=== PATIENT | female | born 1975 | race Caucasian/White ===

== ENCOUNTER 2024-06-06 14:39 | Emergency (ER) | payer OTHER, SELFPAY ==
[2024-06-06 15:14] VITALS: BP 128/88; PULSE 80; RESP 16; TEMP 36.3; O2SAT 99; BMI 44.9
--- NOTE | 2024-06-06 15:24 | DI.US.S_ITS ---
PROCEDURE: US PELVIC COMPLETE INDICATIONS: heavy vaginal bleeding, post menopause TECHNIQUE: Real-time scanning was performed of the pelvic organs, with image documentation. Additional endovaginal scanning was necessary due to incomplete visualization of the adnexal and endometrial structures by transabdominal scanning. COMPARISON: None. FINDINGS: Uterus: 7.9 x 4.1 x 5.5 cm. Endometrium measures 7 mm. Ovaries: Right ovary is absent. Nonenlarged left ovary measuring 7 cc. Other: No pathologic free fluid. IMPRESSION: Reported postmenopausal status. Endometrium measures 7 mm, which is mildly thickened, consider sampling. Dictated by: Darinel Arellano M.D. on 06/06/2024 at 17:04 Approved by: Darinel Arellano M.D. on 06/06/2024 at 17:05
[2024-06-06 15:32] LABS: Add Manual Diff / Slide Review NO; Basophils Absolute Auto 0 /uL (0-100); Basophils Percent Auto 1.1 % (0-2); Eosinophils Absolute Auto 100 /uL (0-450); Eosinophils Percent Auto 1.3 % (2-4); Hematocrit 42.9 % (36-46); Hemoglobin 14.7 g/dL (12.0-16.0); Lymphocytes Absolute Auto 1200 /uL (1100-4500); Lymphocytes Percent Auto 28.8 % (25-40); Mean Corpuscular HGB Conc 34.2 % (30-36); Mean Corpuscular Hemoglobin 31.5 PG (26-34); Mean Corpuscular Volume 92.2 fL (80-100); Monocytes Absolute Auto 400 /uL (0-900); Monocytes Percent Auto 10.6 % (3-14); Neutrophils Absolute Auto 2400 /uL (1500-7000); Neutrophils Percent Auto 58.2 % (50-75); Platelet Count 306 X10^3/uL (150-400); Red Blood Cell Count 4.66 X10^6/uL (4.0-5.2); Red Cell Distribution Width 12.9 % (11.6-14.8)
[2024-06-06 15:47] LABS: Carbon Dioxide 28 mmol/L (22-32); Chloride 103 mmol/L (98-107); Glucose 93 mg/dL (70-100); HEMOLYSIS < 15 (0-50); Potassium 4.2 mmol/L (3.4-5.1); Sodium 137 mmol/L (137-145)
[2024-06-06 15:48] LABS: BUN Creatinine Ratio 16.8 (6-22); Blood Urea Nitrogen 16 mg/dL (7-17); Calcium 9.1 mg/dL (8.4-10.2); Estimated Glomerular Filt Rate > 60 mL/min (>60)
[2024-06-06 17:24] LABS: Bacteria Urine Occasional (0-1); RBC Urine 10-30/HPF (0-5/HPF); Squamous Epithelial Cell Urine None Seen (0-5/HPF); Urine Volume 10mL (spun); WBC Urine None Seen (0-5/HPF)
[2024-06-06 17:25] LABS: Culture Indicated Urine Cult Not Indicated
--- NOTE | 2024-06-06 17:25 | PC.NURSE ---
No new dizziness. No fever. No lower back pain. States pain has gotten worse since checking into ER. Denies any hx of prolapsed uterus. States last visit to OBGYN was a little over a year ago.
--- NOTE | 2024-06-06 18:12 | ED.GENADULT ---
HPI - General Adult General Chief complaint: Vaginal Bleeding Stated complaint: post menopausal, bleeding, abd pain Time Seen by Provider: 06/06/24 18:12 Source: patient Mode of arrival: Ambulatory History of Present Illness HPI narrative: 48-year-old female who does not take blood thinner medications, no clotting disorders, had not been having periods for a few years, now with 2 days duration of crampy lower abdominal discomfort and some vaginal bleeding, decreased through the day today. No fevers or chills. She was going to an ophthalmology clinic when she mentioned this and was advised to come here for evaluation. She has a computer programmer analyst Dr. Gamboa in [facility]. She denies dizziness or shortness of breath symptoms. Review of Systems Review of Systems Narrative: see HPI Exam Narrative Exam Narrative: GENERAL: Well-developed patient, in mild distress. HEAD: Atraumatic. Normocephalic. EYES: Pupils equal round and reactive. Extraocular motions intact. No scleral icterus. No injection or drainage. ENT: Nose without bleeding, purulent drainage. Throat without erythema, tonsillar hypertrophy or exudate. Airway patent. NECK: Trachea midline. Non tender CARDIOVASCULAR: Regular rate and rhythm without murmurs, gallops, or rubs. RESPIRATORY: Clear to auscultation. Breath sounds equal bilaterally. No wheezes, rales, or rhonchi. GASTROINTESTINAL: Abdomen soft, non-tender, nondistended. EXTREMITIES: No edema or joint tenderness. BACK: Nontender without deformity or crepitance. No flank tenderness. NEURO: AOx3. Motor functions grossly nonfocal SKIN: No rash or erythema of visible areas Initial Vital Signs Initial Vital Signs: Vital Signs Temperature 97.4 F L 06/06/24 15:14 Pulse Rate 80 06/06/24 15:14 Respiratory Rate 16 06/06/24 15:14 Blood Pressure 128/88 06/06/24 15:14 Pulse Oximetry 99 06/06/24 15:14 Oxygen Delivery Method Room Air 06/06/24 15:14 Course Orders Ordered: Discontinued Medications Acetaminophen (Acetaminophen 325 Mg Tablet) 650 mg PO NOW ONE Stop: 06/06/24 18:21 Last Admin: 06/06/24 18:25 Dose: 650 mg Documented By: KW Vital Signs Vital signs: Vital Signs - 8 hr 06/06/24 18:50 Temperature 98.3 F Pulse Rate 77 Respiratory Rate 16 Blood Pressure 126/82 Pulse Oximetry 100 Oxygen Delivery Method Room Air Medical Decision Making Lab Data Lab results reviewed: Yes I reviewed the patient's lab results. Lab results narrative: White blood cell count 4000, hemoglobin 14.7, platelets normal. BNP unremarkable, liver functions unremarkable. 06/06/24 15:22 06/06/24 15:22 Labs: Lab Results 06/06/24 06/06/24 Range/Units 15:22 15:26 WBC 4.0 L (4.5-11.0) X10^3/uL RBC 4.66 (4.0-5.2) X10^6/uL Hgb 14.7 (12.0-16.0) g/dL Hct 42.9 (36-46) % MCV 92.2 (80-100) fL MCH 31.5 (26-34) PG MCHC 34.2 (30-36) % RDW 12.9 (11.6-14.8) % Plt Count 306 (150-400) X10^3/uL Neut % (Auto) 58.2 (50-75) % Lymph % (Auto) 28.8 (25-40) % [place] % (Auto) 10.6 (3-14) % Eos % (Auto) 1.3 L (2-4) % Baso % (Auto) 1.1 (0-2) % Neut # (Auto) 2400 (8994-4269) /uL Lymph # (Auto) 1200 (3059-1806) /uL [place] # (Auto) 400 (0-900) /uL Eos # (Auto) 100 (0-450) /uL Baso # (Auto) 0 (0-100) /uL Sodium 137 (137-145) mmol/L Potassium 4.2 (3.4-5.1) mmol/L Chloride 103 (98-107) mmol/L Carbon Dioxide 28 (22-32) mmol/L BUN 16 (7-17) mg/dL Creatinine 0.95 (0.52-1.04) mg/dL Estimated GFR > 60 (>60) mL/min BUN/Creatinine Ratio 16.8 (6-22) Glucose 93 (70-100) mg/dL Calcium 9.1 (8.4-10.2) mg/dL HCG, Quant < 2.39 mIU/mL Urine RBC 10-30/hpf H (0-5/HPF) Urine WBC None seen (0-5/HPF) Ur Squamous Epith Cells None seen (0-5/HPF) Urine Bacteria Occasional (0-1) (None) Ur Culture Indicated? Cult not indicated Vol Urine Centrifuged 10ml (spun) Ur Chlamydia DNA (PCR) Not detected N gonorrhoeae DNA (PCR) Not detected Blood Type A Positive Antibody Screen Negative Urine Dip Bedside Urine Glucose Negative Bedside Urine Bilirubin - Negative Bedside Urine Ketone - Negative Urine Specific [place] 1.015 Bedside Urine Occult Blood +++ Bedside Urine pH 5.5 Bedside Urine Protein - Negative Bedside Urine Urobilinogen - Negative Bedside Urine Nitrite - Negative Bedside Urine Leukocytes - Negative Esterase Point of care testing: Urine Dip Bedside Urine Glucose Negative Bedside Urine Bilirubin - Negative Bedside Urine Ketone - Negative Urine Specific [place] 1.015 Bedside Urine Occult Blood +++ Bedside Urine pH 5.5 Bedside Urine Protein - Negative Bedside Urine Urobilinogen - Negative Bedside Urine Nitrite - Negative Bedside Urine Leukocytes - Negative Esterase Imaging Data Pelvic ultrasound: Radiologist's Impression: [address] [address] Ultrasound Report Signed Patient: Rosemarie Flanagan MR#: [id number] : 1975 Acct:[id number] Age/Sex: 48 / F Date of Service: 06/06/24 Loc: ED Accession Number: [id number] Procedure: US pelvic complete Ordering Provider: Anai Dos Santos D.O. PROCEDURE: US PELVIC COMPLETE INDICATIONS: heavy vaginal bleeding, post menopause TECHNIQUE: Real-time scanning was performed of the pelvic organs, with image documentation. Additional endovaginal scanning was necessary due to incomplete visualization of the adnexal and endometrial structures by transabdominal scanning. COMPARISON: None. FINDINGS: Uterus: 7.9 x 4.1 x 5.5 cm. Endometrium measures 7 mm. Ovaries: Right ovary is absent. Nonenlarged left ovary measuring 7 cc. Other: No pathologic free fluid. IMPRESSION: Reported postmenopausal status. Endometrium measures 7 mm, which is mildly thickened, consider sampling. Dictated by: Darinel Arellano M.D. on 06/06/2024 at 17:04 Approved by: Darinel Arellano M.D. on 06/06/2024 at 17:05 [facility] Narrative Medical decision making narrative: 48-year-old female had not been having periods for a number of years, now with 2 days duration of lower abdominal cramping and vaginal bleeding. No fever. Cans abdominal exam unremarkable. Hemoglobin normal. White blood cell count normal. Serum HCG negative. Ultrasound done from triage, endometrial thickening noted, otherwise negative. See report. Case discussed with Dr. Barragan, believes that the endometrium is not thickened by report dimensions with 7 mm, but post menopausal bleeding of concern, stable vitals, normal hemoglobin, can be evaluated as an outpatient, might need endometrial biopsy, can be performed by patient's own computer programmer analyst in [place] as an outpatient. Contact information provided for the patient for Dr. Barragan, if she can not be seen by her own [facility] computer programmer analyst. Patient declined any further workup, requested to go home. Discharged home. Follow up with Gynecology as an outpatient for now. Discharge Plan Departure Patient Disposition: Home Clinical Impression: Post-menopausal bleeding Activity Restrictions/Additional Instructions: Postmenopausal bleeding and cramping. Ultrasound showed empty uterus, 7 mm thickening, no acute changes. Copy of report provided. Case discussed with local computer programmer analyst Dr. Barragan, who could see you in follow up if more expedient then seeing your computer programmer analyst in [place], however advises follow up with Gynecology. You might end up needing endometrial biopsy of the uterine lining. No therapy advised for now. Return earlier to this/nearest emergency department for any change worsening symptoms or any concerns prior Referrals: Tod Barragan MD [Physician] - Stand Alone Forms: Patient Portal/API/Survey
[2024-06-06] MEDS: ACETAMINOPHEN 325 MG TABLET 650 MG PO (18:25)
[2024-06-06 18:50] VITALS: BP 126/82; PULSE 77; RESP 16; TEMP 36.8; O2SAT 100
[2024-06-06 19:07] LABS: HCG Quantitative /Beta subunit < 2.39 mIU/mL
[2024-06-06 20:25] LABS: Urine Chlamydia NOT DETECTED; Urine N gonorrhoeae NOT DETECTED
== END 2024-06-06 18:48 | disposition home or self-care (01) ==
PROVIDERS: Emergency Medicine; Emergency Provider Emergency Medicine
DX: N95.0 Postmenopausal bleeding (principal); R10.30 Lower abdominal pain, unspecified
CPT/HCPCS: 36415; 76830; 76856; 80048; 81003; 81015; 84702; 85025; 86850; 86900; 86901; 87491; 87591; 99284